=== PATIENT | female | born 1960 | race Two or more races ===

== ENCOUNTER 2016-06-05 14:26 | Emergency (ER) | payer OTHER ==
[2016-06-05 14:40] VITALS: TEMP 98; BMI 26.0
--- NOTE | 2016-06-05 15:17 | PDOC ---
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 Upon arriving in ED, BP found to be 208/110. Patient states she has severe anxiety and takes 3mg of Xanax every day. Today has been an especially difficult day and she has already taken 5mg. She states she has some nonspecific chest pain but describes it as more diffuse than substernal. She also states she has some intermittent dizziness. (Adolfo Gonzalez) Past History - Travel Traveled outside of the country in the last 30 days: No Close contact w/someone who was outside of country & ill: No - Past Medical History Anemia: No Asthma: No Cancer: No Cardiac Disorders: No CVA: No COPD: No CHF: No Dementia: No Diabetes: No GI Disorders: Yes (H/O POLYPS,CHRONIC CONSTIPATION) Disorders: No HTN: Yes Hypercholesterolemia: No Liver Disease: No Seizures: No Thyroid Disease: No - Surgical History Abdominal Surgery: Yes (ABDOMINOPLASTY) Appendectomy: No Cardiac Surgery: No Cholecystectomy: No Lung Surgery: No Neurologic Surgery: No Orthopedic Surgery: No - Family Disease History Family Disease History: Heart Disease: Mother (htn) - Immunization History Td Vaccination: Yes - Psycho/Social/Smoking Cessation Hx Anxiety: No Suicidal Ideation: No Smoking Status: Yes Smoking History: Current every day smoker Have you smoked in the past 12 months: Yes Number of Cigarettes Smoked Daily: 10 Information on smoking cessation initiated: Yes 'Breaking Loose' booklet given: 06/05/16 Hx Alcohol Use: No Drug/Substance Use Hx: No Substance Use Type: None Hx Substance Use Treatment: No Patient Lives Alone: No Lives with/in: spouse/SO <Adolfo Gonzalez - Last Filed: 06/05/16 19:03> <Mary Fan - Last Filed: 06/05/16 21:03> - Past Medical History Allergies/Adverse Reactions: Allergies Allergy/AdvReac Type Severity Reaction Status Date / Time ciprofloxacin [From Cipro] Allergy Severe Difficulty Verified 06/05/16 14:34 Breathing ciprofloxacin HCl Allergy Severe Difficulty Verified 06/05/16 14:34 [From Cipro] Breathing Penicillins Allergy Severe Difficulty Verified 06/05/16 14:34 Breathing Home Medications: Ambulatory Orders LamoTRIgine [LaMICtal] 200 mg PO DAILY 07/17/12 [place] Carbonate 600 mg PO BID 07/17/12 Quetiapine Fumarate [Seroquel -] 200 mg PO DAILY 07/17/12 Alprazolam [Xanax] 1 mg PO PRN PRN 07/20/14 Sumatriptan Succinate [Imitrex -] 50 mg PO PRN PRN 07/20/14 Hydrochlorothiazide [Hctz -] 12.5 mg PO DAILY 03/29/15 Valsartan [Diovan] 160 mg PO DAILY #14 tablet 06/05/16 Cardiac Specific PMH - Complaint Specific PMHX Abdominal Aortic Aneurysm: (states she has history of aortic aneurysm) Pacemaker: No <Adolfo Gonzalez - Last Filed: 06/05/16 19:03> Review of Systems - Review of Systems Able to Perform ROS?: Yes Is the patient limited [place]ian proficient: No Cardiac (ROS): Yes: Lightheadedness, Chest Tightness <Adolfo Gonzalez - Last Filed: 06/05/16 19:03> *Physical Exam - Physical Exam General Appearance: Yes: Nourished, Appropriately Dressed, Apparent Distress HEENT: positive: EOMI, VANDA, Normal ENT Inspection Neck: positive: Trachea midline, Supple Respiratory/Chest: positive: Lungs Clear, Normal Breath Sounds Cardiovascular: positive: Regular Rhythm, Regular Rate Gastrointestinal/Abdominal: positive: Normal Bowel Sounds, Flat, Soft Musculoskeletal: positive: Normal Inspection Extremity: positive: Normal Inspection, Normal Range of Motion Integumentary: positive: Normal Color, Dry, Warm 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: 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: 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, Fully Oriented, Alert, Normal Response, Motor Strength 5/5 <Adolfo Gonzalez - Last Filed: 06/05/16 19:03> - Vital Signs Last Vital Signs Temp Pulse Resp BP Pulse Ox 98.0 F 69 18 171/86 98 06/05/16 14:35 06/05/16 18:49 06/05/16 18:49 06/05/16 18:49 06/05/16 18:49 Heart Score/ECG Review - History History: Slightly suspicious - Electrocardiogram EKG: Normal - Age Age: 45-65 - Risk Factors Risk Factors Heart Score: Yes Hx Hypertension, Yes Smoking History, Yes Positive family hx of cardiac disease Based on the list above the patient has:: >/=3 risk factors or Hx atherosclerotic disease - Troponin Troponin: </= normal limit - Score Heart Score - Total: 3 - ECG Intrepretation Rhythm: Regular Rhythm <Adolfo Gonzalez - Last Filed: 06/05/16 19:03> <Mary Fan - Last Filed: 06/05/16 21:03> - ECG Intrepretation Comment:: Possible left atrial enlargement, LVH (Adolfo Gonzalez) ED Treatment Course - LABORATORY CBC & Chemistry Diagram: 06/05/16 15:33 06/05/16 15:33 <Adolfo Gonzalez - Last Filed: 06/05/16 19:03> - LABORATORY CBC & Chemistry Diagram: 06/05/16 15:33 06/05/16 15:33 <Mary Fan - Last Filed: 06/05/16 21:03> - ADDITIONAL ORDERS Additional order review: Laboratory Results 06/05/16 06/05/16 06/05/16 20:20 15:33 15:20 Sodium 142 Potassium 3.8 Chloride 108 H Carbon Dioxide 28 D Anion Gap 6 L BUN 14 Creatinine 1.0 D Creat Clearance w eGFR 57.56 Random Glucose 125 H D Calcium 9.0 Total Bilirubin 0.2 D AST 13 L D ALT 19 D Alkaline Phosphatase 158 H D Creatine Kinase 87 92 Troponin I < 0.02 < 0.02 Total Protein 6.8 Albumin 4.3 06/05/16 15:33 RBC 4.73 MCV 93.5 MCHC 32.3 RDW 13.2 MPV 10.1 06/05/16 16:51 Patient arrived and was extremely anxious. CBC, CMP & Cardiac profile all returned & were uneventful. Given 1mg Xanax for anxiety. Within 30 minutes BP was found to be 158/80. Discussed case with PMD Dr Lemus. He agrees that anxiety was the etiology of patient's elevated BP, but notes she has a history of hypertension so he would like to add another long-acting antihypertensive. Patient to be discharged on Valsartan 160mg daily. We are awaiting 2nd troponin value to be drawn at 1930 before clearing the patient for discharge. (Adolfo Gonzalez) - Medications Given in the ED: ED Medications Discontinued Medications Generic Name Dose Route Start Last Admin Trade Name Ruchi PRN Reason Stop Dose Admin Alprazolam 1 mg 06/05/16 16:17 06/05/16 16:38 Xanax - PO 06/05/16 16:18 1 mg ONCE ONE Administration Valsartan 160 mg 06/05/16 18:42 06/05/16 18:49 Diovan - PO 06/05/16 18:43 160 mg ONCE ONE Administration *DC/Admit/Observation/Transfer <Adolfo Gonzalez - Last Filed: 06/05/16 19:03> <Mary Fan - Last Filed: 06/05/16 21:03> Diagnosis at time of Disposition: Hypertensive urgency - Discharge Dispostion Disposition: HOME Condition at time of disposition: Stable - Prescriptions Prescriptions: Valsartan [Diovan] 160 mg PO DAILY #14 tablet - Referrals Referrals: Ry Lemus MD [Staff Physician] - - Patient Instructions Additional Instructions: Take diovan every day until you visit Dr Lemus on Sunday. He will decide whether to keep it on or not.
--- NOTE | 2016-06-05 15:24 | PDOC ---
Attending Attestation - Resident Resident Name: Adolfo Gonzalez - ED Attending Attestation I have performed the following: I have examined & evaluated the patient, The case was reviewed & discussed with the resident, I agree w/resident's findings & plan, Exceptions are as noted - HPI HPI: 55 yo F history anxiety, high BP presents with high BP reading and chest pain, sent from Dr. Cronin's office. Her BP was measured high, then she subsequently developed chest pressure. Denies SOB, N/V, sweating. Pt states that her BP is very hard to control. - Physicial Exam PE: GENERAL: Awake, alert, and fully oriented, in no acute distress. Appears anxious. HEAD: No signs of trauma EYES: PERRLA, EOMI, sclera anicteric, conjunctiva clear ENT: Auricles normal inspection, hearing grossly normal, nares patent, oropharynx clear without exudates. Moist mucosa NECK: Normal ROM, supple, no lymphadenopathy, JVD, or masses LUNGS: Breath sounds equal, clear to auscultation bilaterally. No wheezes, and no crackles HEART: Regular rate and rhythm, normal S1 and S2, no murmurs, rubs or gallops ABDOMEN: Soft, nontender, normoactive bowel sounds. No guarding, no rebound. No masses EXTREMITIES: Normal range of motion, no edema. No clubbing or cyanosis. No cords, erythema, or tenderness NEUROLOGICAL: Cranial nerves II through XII grossly intact. Normal speech, normal gait SKIN: Warm, Dry, normal turgor, no rashes or lesions noted. - Medical Decision Making Symptoms occurred just prior to arrival. Will obtain 2 CE and discharge if both negative. Will discuss with Dr. Lemus regarding starting an additional antihypertensive.
[2016-06-05 16:05] LABS: MCH 30.2 pg (25.7-33.7); MCHC 32.3 g/dl (32.0-36.0); MEAN CELL VOLUME 93.5 fl (80-96); MEAN PLT VOLUME 10.1 fl (7.5-11.1); PLATELET COUNT 199 K/MM3 (134-434); RDW 13.2 % (11.6-15.6); WHITE BLOOD COUNT 7.4 K/mm3 (4.0-10.0)
[2016-06-05] MEDS ORDERED: ALPRAZolam 0.25 MG TABLET PO ONE (16:17)
[2016-06-05 16:24] LABS: ALBUMIN 4.3 g/dl (3.4-5.0); BILIRUBIN,TOTAL 0.2 mg/dL (0.2-1.0); TOT PROT 6.8 g/dl (6.4-8.2)
[2016-06-05 16:28] LABS: TROPONIN I < 0.02 ng/ml (0.00-0.05)
[2016-06-05] MEDS ORDERED: ALPRAZolam 0.25 MG TABLET ONE (16:37)
[2016-06-05] MEDS ORDERED: VALSARTAN 160 MG TABLET (UD) PO ONE (18:42)
[2016-06-05 20:52] LABS: TROPONIN I < 0.02 ng/ml (0.00-0.05)
[2016-06-05 21:09] VITALS: BP 157/115; PULSE 77
--- NOTE | 2016-06-06 16:25 | EKG ---
Test Reason : Blood Pressure : / mmHG Vent. Rate : 100 BPM Atrial Rate : 100 BPM P-R Int : 182 ms QRS Dur : 098 ms QT Int : 360 ms P-R-T Axes : 055 -11 055 degrees QTc Int : 464 ms NORMAL SINUS RHYTHM POSSIBLE LEFT ATRIAL ENLARGEMENT LEFT VENTRICULAR HYPERTROPHY ABNORMAL ECG WHEN COMPARED WITH ECG OF 17-JUL-2012 10:40, NO SIGNIFICANT CHANGE WAS FOUND Confirmed by ASHLEY FLORENTINO, MAKENZIE ([id number]) on 06/06/2016 4:25:08 PM Referred By: Confirmed By:MAKENZIE RAMIREZ MD
== END 2016-06-05 21:08 | disposition home or self-care (01) ==
LOC: JER 14:26
DX: I16.0 Hypertensive urgency (principal); F41.8 Other specified anxiety disorders; F17.210 Nicotine dependence, cigarettes, uncomplicated
CPT/HCPCS: 36415; 71010-TC; 80053; 82550; 84484; 85027; 93005; 93010; 99285-25

== ENCOUNTER 2018-06-25 07:02 | Day surgery (SDC) | payer OTHER ==
[2018-06-24 13:16] VITALS: BMI 24.3
[2018-06-25 09:34] VITALS: BP 158/71; PULSE 69; TEMP 98.2
--- NOTE | 2018-06-26 16:26 | PATH ---
Surgical Pathology Report Patient Name: ROBERTO KRAUSE [facility]. Rec. #: [id number] /Age/Gender: 1960 (Age: 57) / F Account: [id number] Location: [facility]-ENDOSCOPY Taken: 06/25/2018 Received: 06/25/2018 Reported: 06/26/2018 Physicians: Elver Mendoza M.D. Specimen(s) Received BX LEFT COLON POLYP Clinical History Screening, history of colon polyps Postoperative diagnosis: Colon polyp Final Diagnosis LEFT COLON POLYP, BIOPSY: POLYPOID COLONIC MUCOSA WITH FOCAL SURFACE HYPERPLASTIC CHANGE. Electronically Signed Lisa Pina M.D. Gross Description Received in formalin, labeled "biopsy polyp left colon" are 3 clark, irregular portions of soft tissue ranging from 0.2-0.4 cm. in greatest dimension. The specimens are submitted in toto in one cassette. /06/25/201806/25/2018
== END 2018-06-25 09:34 | disposition home or self-care (01) ==
LOC: JASU-ENDO 07:02
PROVIDERS: ATTEND Internal Medicine Gastroenterology
PROC: 0DBM8ZX Excision of Descending Colon, Via Natural or Artificial Opening Endoscopic, Diagnostic (ICD-10-PCS; principal; 2018-06-25 08:00)
DX: Z12.11 Encounter for screening for malignant neoplasm of colon (principal); Z86.010 Personal history of colon polyps; D12.4 Benign neoplasm of descending colon
CPT/HCPCS: 88305-TC

== ENCOUNTER 2018-10-28 11:00 | Emergency (ER) | payer OTHER | END 2018-10-28 13:15 | disposition home or self-care (01) | LOC: JER 11:00 ==

== ENCOUNTER 2021-11-01 09:32 | Inpatient (IN) | payer OTHER ==
[2021-11-01] MEDS ORDERED: morphine CARPU-JECT 4 MG/1 ML DISP.SYRIN IVPUSH ONE ×2 (10:15→15:20)
[2021-11-01] MEDS ORDERED: morphine SULFATE 4 MG/ML VIAL ONE ×2 (10:19→15:43)
[2021-11-01 11:04] LABS: BASO % 0.9 % (0-2.0); HEMATOCRIT 43.2 % (32.4-45.2); HEMOGLOBIN 14.4 GM/dL (10.7-15.3); LYMPH % 26.7 % (8-40); MCH 31.4 pg (25.7-33.7); MCHC 33.4 g/dl (32.0-36.0); MEAN CELL VOLUME 94.1 fl (80-96); MEAN PLT VOLUME 8.9 fl (7.5-11.1); MONO % 7.5 % (3.8-10.2); NEUT % 63.9 % (42.8-82.8); PLATELET COUNT 210 10^3/uL (134-434); RBC 4.59 M/mm3 (3.60-5.2); RDW 12.9 % (11.6-15.6); WHITE BLOOD COUNT 5.7 K/mm3 (4.0-10.0)
[2021-11-01 11:14] LABS: INR 0.97 (0.83-1.09); PROTHROMBIN TIME (PATIENT) 11.2 SEC (9.7-13.0)
[2021-11-01 11:17] LABS: ACTIVATED PTT 31.8 SECONDS (25.2-36.5)
[2021-11-01 11:33] LABS: CALCIUM 9.1 mg/dL (8.5-10.1)
[2021-11-01 11:34] LABS: ALBUMIN 4.3 g/dl (3.4-5.0)
[2021-11-01 11:38] LABS: BILIRUBIN,TOTAL 0.4 mg/dL (0.2-1); TOT PROT 6.7 g/dl (6.4-8.2)
[2021-11-01] MEDS ORDERED: ACETAMINOPHEN 1000 MG/100 ML BAG IVPB ONE (11:48)
[2021-11-01] MEDS ORDERED: ACETAMINOPHEN INJECTION 100 ML IVPB ONE (11:54)
[2021-11-01 12:13] LABS: EPI CELLS 13 /uL (0-25.1); HYALINE CASTS 1 /uL (0-3.1); PH,URINE 5.5 (5.0-8.0); URINE APPEARANCE CLEAR; URINE BACTERIA 154 /uL (0-1359); URINE BILIRUBIN NEGATIVE (NEGATIVE); URINE COLOR YELLOW; URINE GLUCOSE (UA) NEGATIVE (NEGATIVE); URINE KETONE NEGATIVE (NEGATIVE); URINE LEUK ESTERASE TRACE (NEGATIVE); URINE NITRITE NEGATIVE (NEGATIVE); URINE PROTEIN NEGATIVE (NEGATIVE); URINE RBC 12 /uL (0-23.9); URINE UROBILINOGEN 0.2 mg/dL (0.2-1.0); URINE WBC 18 /uL (0-25.8)
[2021-11-01] MEDS ORDERED: PATIENT'S OWN MEDICATION (NON-FORMULARY) (Clonazepam [Clonazepam] 1 MG Tablet) PO PRN (13:48)
[2021-11-01] MEDS: clonazePAM 0.5 MG TABLET PO PRN (22:06)
[2021-11-01] MEDS: QUEtiapine FUMARATE 200 MG TABLET PO SCH (22:32)
[2021-11-01] MEDS: LITHIUM CARBONATE 150 MG CAPSULE PO SCH (22:34)
[2021-11-01] MEDS ORDERED: ACETAMINOPHEN 325 MG TABLET (FP) PO PRN (22:47)
[2021-11-02 02:00] VITALS: BMI 23.8
[2021-11-02] MEDS: QUEtiapine FUMARATE 100 MG TABLET (FP) PO SCH (06:02)
[2021-11-02 11:14] LABS: BASO % 0.9 % (0-2.0); EOS % 2.5 % (0-4.5); LYMPH % 36.3 % (8-40); MCH 31.3 pg (25.7-33.7); MCHC 33.3 g/dl (32.0-36.0); MEAN PLT VOLUME 8.7 fl (7.5-11.1); MONO % 7.8 % (3.8-10.2); NEUT % 52.5 % (42.8-82.8); PLATELET COUNT 205 10^3/uL (134-434); RBC 4.47 M/mm3 (3.60-5.2); RDW 13.2 % (11.6-15.6); WHITE BLOOD COUNT 4.9 K/mm3 (4.0-10.0)
[2021-11-02 11:18] LABS: INR 1.02 (0.83-1.09); PROTHROMBIN TIME (PATIENT) 11.7 SEC (9.7-13.0)
[2021-11-02 11:21] LABS: ACTIVATED PTT 30.8 SECONDS (25.2-36.5)
[2021-11-02 11:44] LABS: CALCIUM 8.8 mg/dL (8.5-10.1)
[2021-11-02 11:45] LABS: ALBUMIN 3.6 g/dl (3.4-5.0); BLOOD UREA NITROGEN 11.2 mg/dL (7-18); MAGNESIUM 2.5 mg/dL (1.8-2.4)
[2021-11-02 11:47] LABS: CREATININE 0.8 mg/dL (0.55-1.3)
[2021-11-02 11:49] LABS: BILIRUBIN,TOTAL 0.4 mg/dL (0.2-1); TOT PROT 6.1 g/dl (6.4-8.2)
[2021-11-02] MEDS: ENOXAPARIN NA (PORCINE) 40 MG/0.4 ML DISP.SYRIN SQ SCH (11:49)
[2021-11-02 13:53] LABS: GAMMA GLUTAMYL TRANSPEPTIDASE 16 U/L (5-85)
[2021-11-02] MEDS: lamoTRIgine 100 MG TABLET PO SCH (14:18)
[2021-11-02] MEDS: LITHIUM CARBONATE 150 MG CAPSULE PO SCH (14:19)
[2021-11-02] MEDS ORDERED: diazePAM 5 MG TABLET PO ONE ×2 (15:02→19:15)
[2021-11-02] MEDS: ACETAMINOPHEN 325 MG TABLET (FP) PO PRN (17:07)
[2021-11-03] MEDS: LITHIUM CARBONATE 150 MG CAPSULE PO SCH ×3 (00:36→21:26)
[2021-11-03] MEDS: QUEtiapine FUMARATE 200 MG TABLET PO SCH ×3 (00:36→21:26)
[2021-11-03] MEDS: clonazePAM 0.5 MG TABLET PO PRN ×3 (00:37→21:25)
[2021-11-03] MEDS: QUEtiapine FUMARATE 100 MG TABLET (FP) PO SCH (06:12)
[2021-11-03] MEDS ORDERED: VANCOMYCIN/WATER FOR INJ (PEG) 1,000 MG/200 ML BAG IVPB ONE (08:10)
[2021-11-03] MEDS: ENOXAPARIN NA (PORCINE) 40 MG/0.4 ML DISP.SYRIN SQ SCH ×2 (10:25→10:32)
[2021-11-03] MEDS: lamoTRIgine 100 MG TABLET PO SCH (10:26)
[2021-11-03] MEDS: ACETAMINOPHEN 325 MG TABLET (FP) PO PRN (10:36)
[2021-11-03] MEDS ORDERED: diazePAM 5 MG TABLET PO ONE ×2 (10:40→18:30)
[2021-11-04] MEDS: ACETAMINOPHEN 325 MG TABLET (FP) PO PRN (05:53)
[2021-11-04] MEDS: QUEtiapine FUMARATE 100 MG TABLET (FP) PO SCH (06:11)
[2021-11-04 06:46] VITALS: BP 142/81; PULSE 57; TEMP 97.9
[2021-11-04 09:29] LABS: BASO % 0.8 % (0-2.0); EOS % 1.9 % (0-4.5); HEMATOCRIT 41.4 % (32.4-45.2); HEMOGLOBIN 13.9 GM/dL (10.7-15.3); LYMPH % 31.2 % (8-40); MCH 31.6 pg (25.7-33.7); MCHC 33.6 g/dl (32.0-36.0); MEAN PLT VOLUME 9.3 fl (7.5-11.1); MONO % 7.1 % (3.8-10.2); PLATELET COUNT 197 10^3/uL (134-434); WHITE BLOOD COUNT 5.6 K/mm3 (4.0-10.0)
[2021-11-04] MEDS: lamoTRIgine 100 MG TABLET PO SCH (09:50)
[2021-11-04] MEDS: LITHIUM CARBONATE 150 MG CAPSULE PO SCH (09:50)
[2021-11-04] MEDS: ENOXAPARIN NA (PORCINE) 40 MG/0.4 ML DISP.SYRIN SQ SCH (09:50)
[2021-11-04 10:00] LABS: CALCIUM 9.1 mg/dL (8.5-10.1)
[2021-11-04 10:01] LABS: BLOOD UREA NITROGEN 13.3 mg/dL (7-18)
[2021-11-04 10:04] LABS: CREATININE 0.8 mg/dL (0.55-1.3)
== END 2021-11-04 11:18 | disposition home or self-care (01) | DRG 392 ==
LOC: JER 09:32 → JERBED 12:40 → J5S 21:07
PROVIDERS: ADMIT Internal Medicine; ATTEND Internal Medicine
DX: R10.31 Right lower quadrant pain (principal); F41.9 Anxiety disorder, unspecified; I10 Essential (primary) hypertension; I48.91 Unspecified atrial fibrillation; F39 Unspecified mood [affective] disorder; M54.50 Low back pain, unspecified; N83.8 Other noninflammatory disorders of ovary, fallopian tube and broad ligament; K59.00 Constipation, unspecified; M51.87 Other intervertebral disc disorders, lumbosacral region
CPT/HCPCS: 36415; 71045-TC-FY; 72149-TC; 74177-TC; 76830-TC; 80048; 80053; 81003; 82977; 83605; 83690; 83735; 84100; 85025; 85610; 85651; 85730; 86140; 86304; 86850; 86900; 86901; 87040; 87086; 93005; 93010; 97116-GP; 97161-GP; 99285-25; A9579; C9803-CS; Q9967; U0003; U0005

== ENCOUNTER 2022-06-27 04:19 | Day surgery (SDC) | payer OTHER ==
[2022-06-22 11:51] VITALS: BMI 24.5
[2022-06-27] MEDS ORDERED: oxyCODONE HCL 5 MG TABLET PO PRN ×2 (08:41→09:57)
[2022-06-27] MEDS ORDERED: ONDANSETRON 4 MG/2 ML VIAL IVPUSH PRN ×2 (08:41→09:57)
[2022-06-27] MEDS ORDERED: LACTATED RINGERS SOLUTION 1,000 ML IV SCH (08:45)
[2022-06-27] MEDS ORDERED: LIDOCAINE HCL/PF 2% SDV 5ML VIAL ONE (09:07)
[2022-06-27] MEDS ORDERED: PROPOFOL 20 ML ONE (09:07)
[2022-06-27] MEDS ORDERED: DEXAMETHASONE SOD PHOSPHATE 4 MG/1 ML VIAL ONE (09:07)
[2022-06-27] MEDS ORDERED: ONDANSETRON 4 MG/2 ML VIAL ONE (09:07)
[2022-06-27] MEDS ORDERED: KETOROLAC TROMETHAMINE 30 MG/1 ML VIAL ONE (09:51)
[2022-06-27] MEDS ORDERED: IBUPROFEN 600 MG TABLET (FP) PO PRN (09:57)
[2022-06-27] MEDS ORDERED: IBUPROFEN 800 MG/8 ML IJ IVPB PRN (09:57)
[2022-06-27] MEDS ORDERED: ELECTROLYTE-148 SOLN 1,000 ML IV SCH (10:00)
[2022-06-27 11:02] VITALS: RESP 18
[2022-06-27 13:37] VITALS: TEMP 97.8
[2022-06-27 13:52] VITALS: BP 148/78; PULSE 70
== END 2022-06-27 12:20 | disposition home or self-care (01) ==
LOC: JASU-SURG 04:19
PROVIDERS: ATTEND Obstetrics & Gynecology
PROC: 0UB98ZZ Excision of Uterus, Via Natural or Artificial Opening Endoscopic (ICD-10-PCS; principal; 2022-06-27 08:30)
DX: N95.0 Postmenopausal bleeding (principal); D25.1 Intramural leiomyoma of uterus
CPT/HCPCS: 88305-TC; 94760

== ENCOUNTER 2022-07-06 05:16 | Day surgery (SDC) | payer OTHER ==
[2022-07-05 08:05] VITALS: BMI 24.7
[2022-07-06 09:47] VITALS: RESP 18
[2022-07-06] MEDS ORDERED: SIMETHICONE 40 MG/0.6 ML BOTTLE ONE (09:48)
[2022-07-06 11:24] VITALS: BP 147/89; PULSE 62; TEMP 98
== END 2022-07-06 10:40 | disposition home or self-care (01) ==
LOC: JASU-ENDO 05:16
PROVIDERS: ATTEND Internal Medicine Gastroenterology
PROC: 0DB78ZX Excision of Stomach, Pylorus, Via Natural or Artificial Opening Endoscopic, Diagnostic (ICD-10-PCS; 2022-07-06)
PROC: 0DJD8ZZ Inspection of Lower Intestinal Tract, Via Natural or Artificial Opening Endoscopic (ICD-10-PCS; principal; 2022-07-06 08:30)
DX: Z12.11 Encounter for screening for malignant neoplasm of colon (principal); Z86.010 Personal history of colon polyps; K29.70 Gastritis, unspecified, without bleeding
CPT/HCPCS: 43239; G0105; 88305-TC; 88342-TC

== ENCOUNTER 2024-03-04 07:55 | Day surgery (SDC) | payer OTHER ==
[2024-02-28 14:21] VITALS: BMI 24.9
[2024-03-04] MEDS ORDERED: PROPOFOL 160 ML ONE (08:04)
[2024-03-04 08:31] VITALS: RESP 18
[2024-03-04 09:47] VITALS: TEMP 97.7
[2024-03-04 09:48] VITALS: BP 141/78; PULSE 76
== END 2024-03-04 10:00 | disposition home or self-care (01) ==
LOC: FASU-ENDO 07:55
PROVIDERS: ATTEND Internal Medicine Gastroenterology
PROC: 0DJD8ZZ Inspection of Lower Intestinal Tract, Via Natural or Artificial Opening Endoscopic (ICD-10-PCS; principal; 2024-03-04 09:05)
DX: K64.4 Residual hemorrhoidal skin tags (principal)